=== PATIENT | female | born 1990 | race Caucasian/White ===

== ENCOUNTER → 2020-10-03 14:29 | Outpatient (REF) | payer BC, SELFPAY | LOC: ANHLAB 14:29 | PROVIDERS: Visit Provider Nurse Practitioner | DX: L72.0 Epidermal cyst (principal) | CPT/HCPCS: 88304 ==

== ENCOUNTER → 2021-03-06 14:43 | Outpatient (REF) | payer BC, SELFPAY | LOC: ANHLAB 14:43 | PROVIDERS: Visit Provider Nurse Practitioner | DX: L72.0 Epidermal cyst (principal) | CPT/HCPCS: 88304 ==

== ENCOUNTER 2022-09-03 17:22 | Outpatient (NON) | payer OTHER, SELFPAY | END 2022-09-03 17:23 | disposition home or self-care (01) | LOC: ANHLAB 09-04 17:25 | PROVIDERS: Visit Provider Nurse Practitioner | DX: D49.2 Neoplasm of unspecified behavior of bone, soft tissue, and skin (principal) | CPT/HCPCS: 88305; 88342 ==